=== PATIENT | female | born 1975 | race African-American/Black ===

== ENCOUNTER 2017-06-04 09:16 | Emergency (ER) | payer MEDICAID ==
[~2017-06-04] VITALS: Ht 172.7 cm; Wt 114.0 kg
[2017-06-04] MEDS ORDERED: HYDROCODONE/ACETAMINOPHEN 5/325MG TABLET PO ONE (12:00)
[2017-06-04 13:20] VITALS: BP 151/95
== END 2017-06-04 13:25 | disposition home or self-care (01) ==
LOC: ER 09:33
DX: K02.9 Dental caries, unspecified (principal); J45.909 Unspecified asthma, uncomplicated
CPT/HCPCS: 99283